=== PATIENT | male | born 1930 | race Caucasian/White ===

== ENCOUNTER 2017-04-07 05:31 | Inpatient (IN) | payer OTHER ==
[2017-04-01 12:39] LABS: HEMATOCRIT 40.3 % (42.0-52.0); HEMOGLOBIN 13.5 gm/dL (14.0-18.0); MCHC 33.6 g/dL (28.0-37.0); MCV 95.3 fL (80.0-100.0); RBC 4.23 mil/uL (4.50-6.00); RDW 12.7 % (10.5-14.5); WBC 6.8 thou/uL (4.0-11.0)
[2017-04-01 12:42] LABS: URINE BILIRUBIN NEGATIVE (Negative); URINE BLOOD NEGATIVE (Negative); URINE COLOR YELLOW; URINE GLUCOSE-RANDOM* NEGATIVE (Negative); URINE KETONES NEGATIVE (Negative); URINE LEUKOCYTES-REFLEX NEGATIVE (Negative); URINE PROTEIN (DIPSTICK) NEGATIVE (Negative); URINE UROBILINOGEN 0.2 E.U./dl (0.2-1.0)
[2017-04-01 12:48] LABS: CALCIUM 9.1 mg/dL (8.5-10.1); POTASSIUM 4.5 mmol/L (3.5-5.1)
[2017-04-01 12:51] LABS: PROTIME 10.7 Seconds (9.3-11.4)
[~2017-04-07] VITALS: Ht 165.1 cm; Wt 83.9 kg
[2017-04-07] VITALS (8 sets, daily range): BP systolic 88–153; BP diastolic 54–77
--- NOTE | ~2017-04-07 | O ---
[facility] [place] [address] OPERATIVE REPORT Name: YOUNG BROWNLEE Room #: 150-10 [facility] M.R.#: [id number] Admission: 04/07/17 Attend Phys: Chucky Rao Discharge: Date of : 32 Report #: [id number] THIS REPORT FOR: //name// CC: Chucky HENDRICKS DATE OF SERVICE: 04/07/2017 PREOPERATIVE DIAGNOSIS: Left shoulder pain, osteoarthritis, massive rotator cuff tear. POSTOPERATIVE DIAGNOSIS: Left shoulder osteoarthritis, massive rotator cuff tear, long head of biceps tendon tear. PROCEDURE PERFORMED: Left shoulder reverse total shoulder arthroplasty with open biceps tenodesis. SURGEON: Chucky Davis M.D. STATIONARY ENGINEER APPRENTICE: . ANESTHESIA: General with attempted interscalene block, by Dr. Osei. FLUIDS: 700 mL crystalloid. ESTIMATED BLOOD LOSS: Approximately 100 mL crystalloid. IMPLANTS UTILIZED: DePuy Delta Xtend size 12 WAY coated stem with size 1 epiphysis, 42+3 polyethylene cut, 42-mm glenosphere with standard Metaglene. DESCRIPTION OF PROCEDURE: After proper identification of the patient and operative site in preoperative holding area, the operative site was signed by myself. Prophylactic antibiotics given. The patient elected to receive an interscalene block, but due to his prior radiation treatment at the neck, this was unable to be performed by Dr. Osei's assessment due to the stiffness of the soft tissues, so this was aborted. The patient was then brought back to the operative suite after induction of satisfactory general endotracheal anesthesia, was carefully positioned in the beach chair position with head of bed elevated approximately 40 degrees. Anterior deltopectoral approach was planned. The patient was sterilely prepped and draped in usual manner. Final skin draping was with Ioban. A [employer] limb positioning system was utilized throughout the entire procedure to aid in patient limb positioning, visualization and retraction of the soft tissues, instrument passage, closure and sling application. Anterior deltopectoral approach was planned. Skin was incised sharply. Full [address] [address] OPERATIVE REPORT Name: YOUNG BROWNLEE Room #: 150-10 [facility] M.R.#: [id number] Admission: 04/07/17 Attend Phys: Chucky Rao Discharge: Date of : 32 Report #: [id number] thickness skin flaps were developed. Cephalic vein was identified and retracted laterally. Deltopectoral interval was opened, pronounced subdeltoid adhesions were present. These were carefully released and a Elder deltoid retractor was utilized. Massive rotator cuff tear was noted involving subscapularis, supraspinatus, infraspinatus extending back to the teres minor. Teres minor still appeared intact. Long head of the biceps tendon was tenodesed to the undersurface of the pectoralis major. Humeral head was then delivered out the wound. Oscillating saw was used to flatten the superior surface of this so that hand reaming of the canal could be performed. This was done up to a size 12 stem, which matched the preoperative templating. This had excellent cortical fit distally. Using a cutting jig at approximately 20 degrees of retroversion, this was positioned and secured with half pins. Soft tissues were protected and the humeral head osteotomy was performed. Bone quality was good. Peripheral osteophytes were carefully removed as well as the remaining portion of the cutting jig. Protection plate was applied and then attention was divided to preparation of the glenoid. Anterior capsule was carefully released. Anterior Bankart retractor that was lighted was positioned. At this point, the labrum was circumferentially released and debrided and the inferior capsule was carefully released off the glenoid as well as a small portion of the triceps tendon. There was good glenoid visualization. With the humeral head retracted posteriorly, metaglene guide was positioned along the more inferior aspect of the glenoid. Guide pin was carefully inserted, its position and tilt was verified to be satisfactory. The glenoid face was then reamed on power followed by a Aj reamer for the more superior aspect. Any peripheral soft tissue was then carefully released. This was done down to the subchondral bone. At this point, a step drill was utilized. Central peg was contained. Standard metaglene was impacted into position, it had excellent purchase. Total of 4 screws were utilized, locking screws inferiorly and superiorly as well as nonlocking screws in the AP holes. A 30-mm screw was placed inferiorly, 36 superiorly, anteriorly 30 mm and an 18 nonlocking posteriorly. These were tightened sequentially. The two locking screws both inferiorly and superiorly were then tightened and locked. Metaglene had excellent purchase. At this point, the humerus was delivered using a 43 mm acetabular reamer. The epiphysis was carefully reamed. This area was then thoroughly irrigated with normal saline. Trial implants revealed a size 1 epiphysis, size 12 stem with +3 polyethylene provided the best overall fit. Implant was assembled on the back table, it was impacted into position and it had excellent fit and was stable to rotation movement. A +3 polyethylene trial and then the final liner was impacted into position. Shoulder was reduced. It was stable throughout a full arc of motion. He had approximately 25-30 degrees of external rotation. There was no significant subscapularis able to be repaired. Axillary nerve was identified and carefully protected throughout the entire procedure. Wound was thoroughly irrigated with normal saline. 1 gram of vancomycin powder was utilized, half of this deep, half of it more subcutaneous. Deltopectoral interval was closed with #1 Vicryl, 2-0 Vicryl of the subcutaneous tissues, final skin closure with a running Monocryl stitch. Dermabond was applied. [facility] [address] [place] [address] OPERATIVE REPORT Name: YOUNG BROWNLEE Room #: 150-10 [facility] Burke#: [id number] Admission: 04/07/17 Attend Phys: Chucky Rao Discharge: Date of : 32 Report #: [id number] Sterile dressing as well as a sling was then applied. The patient was in the operative suite at the time of dictation. By: [id number] Chucky Davis MD /nt
[~2017-04-07 05:31] MED LIST: ALDACTONE25 MG PO; CLARITIN10 MG PO; COREG6.25 MG PO; DIOVAN160 MG PO; ELIQUIS5 MG PO; LASIX 20 MG TAB20 MG PO; MULTIVITAMINS PO; PRESERVISION A1 EACH PO; ZOCOR40 MG PO
[2017-04-08 02:57] VITALS: BP 109/52
[2017-04-08 05:36] LABS: MANUAL DIFF YES; MCH 32.3 pg (26.0-34.0); MCHC 34.3 g/dL (28.0-37.0); PLATELET COUNT 199 thou/uL (150-400); RBC 3.73 mil/uL (4.50-6.00); RDW 12.8 % (10.5-14.5); WBC 9.2 thou/uL (4.0-11.0)
[2017-04-08 05:41] LABS: CALCIUM 8.9 mg/dL (8.5-10.1); CREATININE 1.2 mg/dL (0.7-1.3); MAGNESIUM 1.7 mg/dL (1.8-2.4)
[2017-04-08 07:35] LABS: ABSOLUTE NEUTROPHILS 8.3 thou/uL (1.4-8.2); TOTAL CELL COUNT 100
[2017-04-08 07:52] VITALS: BP 126/56
[2017-04-08 13:51] VITALS: BP 87/45
[2017-04-08 15:37] VITALS: BP 87/45
[2017-04-08 15:57] VITALS: BP 87/44
== END 2017-04-08 16:30 | disposition home or self-care (01) | DRG 483 ==
LOC: OR 05:31 → PRE 05:32 → TBA 05:32 → EDSTATUS 11:36 → OR 11:39 → PRE 12:42 → 4S 17:27 → OR 17:28 → 4S 17:28 → ENTRNSPT 04-08 16:09 → 4S 04-08 16:30
PROVIDERS: Orthopaedic Surgery Sports Medicine; Physician Assistant Surgical
PROC: 0RRK00Z Replacement of Left Shoulder Joint with Reverse Ball and Socket Synthetic Substitute, Open Approach (ICD-10-PCS; principal; 2017-04-07)
PROC: 0LS40ZZ Reposition Left Upper Arm Tendon, Open Approach (ICD-10-PCS; principal; 2017-04-07)
DX: M19.012 Primary osteoarthritis, left shoulder (principal); I73.9 Peripheral vascular disease, unspecified; S43.085A Other dislocation of left shoulder joint, initial encounter; R33.9 Retention of urine, unspecified; E78.5 Hyperlipidemia, unspecified; E83.42 Hypomagnesemia; I10 Essential (primary) hypertension; S49.92XA Unspecified injury of left shoulder and upper arm, initial encounter; M75.122 Complete rotator cuff tear or rupture of left shoulder, not specified as traumatic; X58.XXXA Exposure to other specified factors, initial encounter; Y93.89 Activity, other specified; Y92.89 Other specified places as the place of occurrence of the external cause; Y99.8 Other external cause status; Z79.899 Other long term (current) drug therapy; Z85.89 Personal history of malignant neoplasm of other organs and systems; Z95.820 Peripheral vascular angioplasty status with implants and grafts; Z87.891 Personal history of nicotine dependence